=== PATIENT | female | born 1955 | race Two or more races ===

== ENCOUNTER 2020-11-23 12:59 | Emergency (ER) | payer MEDICARE, MEDICAID ==
[2020-11-23] MEDS ORDERED: Iopamidol 612 MG/ML 100 ML Bottle IVPUSH ONE (15:26)
[2020-11-23] MEDS ORDERED: Sodium Chloride 0.9% 10 ML Syringe FLUSH PRN (15:26)
[2020-11-23] MEDS ORDERED: Iopamidol 612 MG/ML 50 ML SDV IVPUSH ONE (15:26)
[2020-11-23] MEDS: Sodium Chloride 0.9% 1,000 ML IV STA ×2 (15:45→15:54)
[2020-11-23] MEDS: Sodium Chloride 0.9% 10 ML Syringe FLUSH PRN ×2 (15:54→16:17)
--- NOTE | 2020-11-23 16:51 | CT ---
CT abdomen and pelvis Technique: Multiple axial sections were obtained from above the dome of the diaphragm inferiorly through the pubic symphysis. Intravenous and oral contrast were utilized. Delayed images were also obtained through the abdomen and pelvis. Reconstructed coronal and sagittal images were obtained. Comparison: No prior CT abdomen or pelvis study is available. Findings: Visualized lung bases show no focal parenchymal abnormality. Liver shows no focal abnormality. Spleen size is normal. Surgical clips are seen from prior cholecystectomy. Common bile duct is enlarged at 1.3 cm which most likely is residual from prior cholecystectomy. Kidneys shows a cyst on the left side measuring 2.4 cm. Two small cortical cysts are noted within the right kidney with largest measuring 6.5 mm. On delayed images, the left kidney shows several other small cortical cysts measuring less than 1 cm. Delayed images show contrast within the collecting systems of both kidneys as well as contrast throughout the ureters into the bladder. Adrenal gland on the left side shows a nodule measuring 3.1 cm. This nodule shows some fat and most likely represents a large benign adenoma. Right adrenal gland is unremarkable. Prior stomach surgery is noted. Contrast is seen within small bowel which appears normal in caliber. Pancreas appears within normal limits. Abdominal aorta shows no aneurysm. No retroperitoneal adenopathy is seen. Small outpouching of the right anterior abdominal wall is seen with no herniation in this area. There is evidence of a fat-containing hernia within the mid and anterior abdominal wall. This hernia opening has a measurement of 2.7 cm. No pelvic mass or adenopathy is seen. Previous hysterectomy is noted. Appendix is seen which is normal in size. Bone window settings were reviewed. Severe disc space narrowing is seen within portions of the thoracic spine as well as within L2-3 through L5-S1 with vacuum phenomena. There is evidence of ruptured annulus with air being seen within the thecal sac at the L3-4 level. Scattered degenerative apophyseal change is seen. Impression: 1. Numerous findings as described above which are likely chronic. 2. Nothing acute is appreciated on CT study of the abdomen and pelvis. Diagnostic code #2
--- NOTE | 2020-11-23 17:25 | EDM.PDOC ---
ED HPI GENERAL MEDICAL PROBLEM - General Chief Complaint: Abdominal Pain Stated Complaint: VOMITING SENT BY [facility] Time Seen by Provider: 11/23/20 14:49 Source of Information: Reports: Patient, RN Notes Reviewed History Limitations: Reports: No Limitations - History of Present Illness INITIAL COMMENTS - FREE TEXT/NARRATIVE: Patient is a 65-year-old female presenting to the emergency department from [facility] for evaluation of 1/2-week history of inability keep food down. She reports that she is able to eat and the food goes down well, however with about 5 minutes she vomits it back up. Denies feeling nauseous prior to eating, however after eating she becomes nauseous. She is able to keep down fluids without difficulty. She has a history of gastric sleeve surgery. She had blood work, Covid test, abdominal x-ray, and chest x-ray done at [facility] and was found to be normal. She was sent here with a recommendation having CT scan completed. She denies any significant abdominal pain. She has had some diarrhea. Denies fever or chills. - Related Data Allergies Allergy/AdvReac Type Severity Reaction Status Date / Time No Known Allergies Allergy Verified 11/23/20 14:41 Home Meds: Home Meds Acetaminophen [Pain Relief] 325 mg PO Q6H PRN 11/23/20 [History] Cyclobenzaprine [Flexeril] 5 mg PO TID PRN 11/23/20 [History] Gabapentin [Neurontin] 1,200 mg PO BID 11/23/20 [History] Metoclopramide [Reglan] 5 mg PO DAILY 14 Days #14 tablet 11/23/20 [Rx] Multivitamin 1 each PO DAILY 11/23/20 [History] Omeprazole 20 mg PO DAILY 11/23/20 [History] Oxybutynin 10 mg PO DAILY 11/23/20 [History] Rosuvastatin [Crestor] 20 mg PO DAILY 11/23/20 [History] Venlafaxine [Effexor XR] 225 mg PO DAILY 11/23/20 [History] oxyCODONE HCl/Acetaminophen [Endocet 5-325 Tablet] 1 each PO Q6H PRN 11/23/20 [History] Past Medical History Cardiovascular History: Reports: Hypertension Endocrine/Metabolic History: Reports: Diabetes, Type II - Past Surgical History GI Surgical History: Reports: Bariatric Procedure, Hernia, Abdominal Social & Family History - Tobacco Use Tobacco Use Status *Q: Never Tobacco User - Recreational Drug Use Recreational Drug Use: No ED ROS GENERAL - Review of Systems Review Of Systems: See Below Constitutional: Denies: Fever, Chills HEENT: Reports: No Symptoms Respiratory: Reports: No Symptoms Cardiovascular: Reports: No Symptoms, Palpitations GI/Abdominal: Reports: Diarrhea, Nausea, Vomiting. Denies: Abdominal Pain : Reports: No Symptoms Musculoskeletal: Reports: No Symptoms Skin: Reports: No Symptoms Neurological: Reports: No Symptoms Psychiatric: Reports: No Symptoms Hematologic/Lymphatic: Reports: No Symptoms Immunologic: Reports: No Symptoms ED EXAM, GI/ABD - Physical Exam Exam: See Below Exam Limited By: No Limitations General Appearance: Alert, WD/WN, No Apparent Distress Respiratory/Chest: No Respiratory Distress, Lungs Clear, Normal Breath Sounds, No Accessory Muscle Use, Chest Non-Tender Cardiovascular: Normal Peripheral Pulses, Regular Rate, Rhythm, No Edema, No Gallop, No JVD, No Murmur, No Rub GI/Abdominal Exam: Normal Bowel Sounds, Soft, No Organomegaly, No Distention, No Abnormal Bruit, No Mass, Pelvis Stable, Tender (mild epigastric ) Neurological: Alert, Oriented, CN II-XII Intact, Normal Cognition, Normal Gait, Normal Reflexes, No Motor/Sensory Deficits Psychiatric: Normal Affect, Normal Mood Skin Exam: Warm, Dry, Intact, Normal Color, No Rash Course - Vital Signs Last Recorded V/S: Last Vital Signs Temp 98.5 F 11/23/20 14:37 Pulse 89 11/23/20 14:37 Resp 16 11/23/20 14:37 BP 128/92 H 11/23/20 14:37 Pulse Ox 97 11/23/20 14:37 - Orders/Labs/Meds Orders: Active Orders 24 hr Category Date Time Status Peripheral IV Insertion Adult [OM.PC] Stat Oth 11/23/20 15:17 Ordered Labs: Laboratory Tests 11/23/20 11/23/20 11/23/20 Range/Units 15:30 15:30 17:40 WBC 5.23 (3.98-10.04) K/mm3 RBC 4.49 (3.98-5.22) M/mm3 Hgb 13.7 (11.2-15.7) gm/dl Hct 42.2 (34.1-44.9) % MCV 94.0 (79.4-94.8) fl MCH 30.5 (25.6-32.2) pg MCHC 32.5 (32.2-35.5) g/dl RDW Std Deviation 44.7 (36.4-46.3) fL Plt Count 176 L (182-369) K/mm3 MPV 10.0 (9.4-12.3) fl Neut % (Auto) 64.5 (34.0-71.1) % Lymph % (Auto) 26.6 (19.3-51.7) % G[place]rie % (Auto) 7.6 (4.7-12.5) % Eos % (Auto) 1.1 (0.7-5.8) Baso % (Auto) 0.2 (0.1-1.2) % Neut # (Auto) 3.37 (1.56-6.13) K/mm3 Lymph # (Auto) 1.39 (1.18-3.74) K/mm3 Guthrie # (Auto) 0.40 H (0.24-0.36) K/mm3 Eos # (Auto) 0.06 (0.04-0.36) K/mm3 Baso # (Auto) 0.01 (0.01-0.08) K/mm3 Sodium 144 (136-145) mEq/L Potassium 4.4 (3.5-5.1) mEq/L Chloride 108 H (98-107) mEq/L Carbon Dioxide 33 H (21-32) mEq/L Anion Gap 7.4 (5-15) BUN 27 H (7-18) mg/dL Creatinine 1.2 H (0.55-1.02) mg/dL Est Cr Clr Drug Dosing 35.98 mL/min Estimated GFR (MDRD) 45 (>60) mL/min BUN/Creatinine Ratio 22.5 H (14-18) Glucose 97 (70-99) mg/dL Calcium 8.5 (8.5-10.1) mg/dL Magnesium 2.0 (1.8-2.4) mg/dL Total Bilirubin 0.8 (0.2-1.0) mg/dL AST 195 H (15-37) U/L ALT 150 H (14-59) U/L Alkaline Phosphatase 45 L (46-116) U/L Total Protein 6.9 (6.4-8.2) g/dl Albumin 3.3 L (3.4-5.0) g/dl Globulin 3.6 gm/dL Albumin/Globulin Ratio 0.9 L (1-2) Urine Color Yellow (Yellow) Urine Appearance Clear (Clear) Urine pH 6.0 (5.0-8.0) Ur Specific [place] 1.020 (1.005-1.030) Urine Protein Trace H (Negative) Urine Glucose (UA) Negative (Negative) Urine Ketones Negative (Negative) Urine Occult Blood Negative (Negative) Urine Nitrite Negative (Negative) Urine Bilirubin Negative (Negative) Urine Urobilinogen 2.0 H (0.2-1.0) Ur Leukocyte Esterase Negative (Negative) U Hyaline Cast (Auto) 5-10 H (0-5) /lpf Urine RBC 0-5 (0-5) /hpf Urine WBC 0-5 (0-5) /hpf Ur Squamous Epith Cells 0-5 (0-5) /hpf Calcium Oxalate Crystal Few H (NONE) Urine Bacteria Rare (FEW) /hpf Urine Mucus Moderate H (FEW) /hpf Meds: Medications Discontinued Medications Generic Name Dose Route Start Last Admin Trade Name Freq PRN Reason Stop Dose Admin Sodium Chloride 1,000 mls @ 150 mls/hr 11/23/20 15:18 11/23/20 15:54 Normal Saline IV 11/23/20 21:57 150 mls/hr NOW STA Administration Iopamidol 100 ml 11/23/20 15:26 11/23/20 16:16 Iopamidol 612 Mg/Ml 100 Ml Bottle IVPUSH 11/23/20 15:27 100 ml ONETIME ONE Administration Iopamidol 50 ml 11/23/20 15:26 11/23/20 16:16 Iopamidol 612 Mg/Ml 50 Ml Sdv IVPUSH 11/23/20 15:27 50 ml ONETIME ONE Administration Sodium Chloride 10 ml 11/23/20 15:17 11/23/20 16:17 Sodium Chloride 0.9% 10 Ml Syringe FLUSH 10 ml ASDIRECTED PRN Administration Keep Vein Open Sodium Chloride 10 ml 11/23/20 15:26 11/23/20 16:18 Sodium Chloride 0.9% 10 Ml Syringe FLUSH 10 ml ONETIME PRN Administration IV FLUSH - Re-Assessments/Exams Free Text/Narrative Re-Assessment/Exam: 11/23/20 17:25 Hematology significant for chloride elevated at 108, CO2 33, BUN 27, creatinine 1.2, AST 195, ALT 150. CT scan of the abdomen pelvis shows numerous findings as described above which are likely chronic. There is nothing acute visualized on the CT. urinalysis is negative for infection. Patient will be discharged home. I will start her on Reglan 5 mg each morning to see if this helps. She should follow-up with her primary care provider or return to ER for new or worsening symptoms. She verbalized understanding this. Discharge instructions as documented. Departure - Departure Time of Disposition: 17:41 Disposition: Home, Self-Care 01 Condition: Good Clinical Impression: Vomiting Qualifiers: Vomiting type: unspecified Vomiting Intractability: non-intractable Nausea presence: with nausea Qualified Code(s): R11.2 - Nausea with vomiting, unspecified - Discharge Information *PRESCRIPTION DRUG MONITORING PROGRAM REVIEWED*: No *COPY OF PRESCRIPTION DRUG MONITORING REPORT IN PATIENT DENISE: No Prescriptions: Metoclopramide [Reglan] 5 mg PO DAILY 14 Days #14 tablet Instructions: Vomiting, Adult Referrals: Sophie Rushing MD [Primary Care Provider] - Forms: ED Department Discharge Additional Instructions: You were seen in the emergency department today for inability keep food down for the last week and a half. Work of included blood work, urinalysis, and a CT scan your abdomen pelvis. Results of your work-up were found to be overall normal. The contrast moved through your bowels well indicating that you are not obstructed. You have been started on Reglan to help stimulate gastric motility. Return to ER for any new or worsening symptoms of concern. Take this as prescribed. Recommend follow-up with your primary care provider at next available visit for ongoing monitoring. Sepsis Event Note (ED) - Evaluation Sepsis Screening Result: No Definite Risk - My Orders Last 24 Hours: My Active Orders 11/23/20 15:17 Peripheral IV Insertion Adult [OM.PC] Stat - Assessment/Plan Last 24 Hours: My Active Orders 11/23/20 15:17 Peripheral IV Insertion Adult [OM.PC] Stat
== END 2020-11-23 18:15 | disposition home or self-care (01) ==
LOC: JD.ED 12:59
DX: R11.2 Nausea with vomiting, unspecified (principal); E11.9 Type 2 diabetes mellitus without complications; I10 Essential (primary) hypertension; Z79.899 Other long term (current) drug therapy
CPT/HCPCS: 36415; 74177; 80053; 81001; 83735; 85025; 99284; J7030; Q9967; 99283

== ENCOUNTER 2022-02-25 15:52 | Emergency (ER) | payer MEDICARE, MEDICAID | END 2022-02-25 23:40 | disposition home or self-care (01) | LOC: JD.ED 15:52 | DX: H54.62 Unqualified visual loss, left eye, normal vision right eye (principal); E78.00 Pure hypercholesterolemia, unspecified; I10 Essential (primary) hypertension; K21.9 Gastro-esophageal reflux disease without esophagitis; E11.9 Type 2 diabetes mellitus without complications; E66.9 Obesity, unspecified; Z68.41 Body mass index [BMI] 40.0-44.9, adult; Z87.891 Personal history of nicotine dependence; Z98.41 Cataract extraction status, right eye; Z98.42 Cataract extraction status, left eye; Z79.899 Other long term (current) drug therapy | CPT/HCPCS: 70450; 70450-26; 70486; 70486-26; 99283 ==

== ENCOUNTER 2022-06-27 16:46 | Emergency (ER) | payer MEDICARE, MEDICAID | END 2022-06-27 20:46 | disposition home or self-care (01) | LOC: JD.ED 16:46 | DX: S00.03XA Contusion of scalp, initial encounter (principal); E78.00 Pure hypercholesterolemia, unspecified; I10 Essential (primary) hypertension; K21.9 Gastro-esophageal reflux disease without esophagitis; E11.9 Type 2 diabetes mellitus without complications; E66.9 Obesity, unspecified; Z88.6 Allergy status to analgesic agent; Z68.37 Body mass index [BMI] 37.0-37.9, adult; Z79.899 Other long term (current) drug therapy; W19.XXXA Unspecified fall, initial encounter; W23.0XXA Caught, crushed, jammed, or pinched between moving objects, initial encounter | CPT/HCPCS: 99283 ==

== ENCOUNTER 2022-07-08 06:21 | Day surgery (SDC) | payer MEDICARE, MEDICAID ==
[~2022-07-08 06:21] MED LIST: Acetaminophen 325 MG Tab PO SCH; Lactated Ringers 1,000 ML IV SCH; Lidocaine 1%/Sod Bicarbonate in NS 8.4% 1 ML Syringe IDERM PRN; Pregabalin 25 MG Cap PO SCH; Sodium Chloride 0.9% 10 ML Syringe FLUSH PRN; Sodium Chloride 0.9% 10 ML Syringe FLUSH SCH; oxyCODONE ER 10 MG TAB.ER PO SCH
[2022-07-08] MEDS ORDERED: Tranexamic Acid 1,000 MG/10 ML Vial IV SCH (08:00)
[2022-07-08] MEDS ORDERED: Triamcinolone Acetonide 40 MG/ML 1 ML SDV ONE (08:00)
[2022-07-08] MEDS ORDERED: Bupivacaine 0.25% 10 ML SDV ONE (08:00)
[2022-07-08] MEDS ORDERED: Tranexamic Acid 1,000 MG/10 ML Vial ONE (08:00)
[2022-07-08] MEDS ORDERED: Dexmedetomidine 200 MCG/2 ML SDV ONE (08:14)
[2022-07-08] MEDS ORDERED: Ropivacaine 0.5% 5 MG/ML 30 ML SDV ONE (08:15)
[2022-07-08] MEDS ORDERED: ceFAZolin 2 GM Vial ONE (08:16)
[2022-07-08] MEDS ORDERED: fentaNYL 100 MCG/2 ML SDV ONE (08:16)
[2022-07-08] MEDS ORDERED: Propofol 200 MG/20 ML SDV ONE ×2 (08:17→10:08)
[2022-07-08] MEDS ORDERED: Dexamethasone 4 MG/ML 5 ML MDV ONE (08:23)
[2022-07-08] MEDS ORDERED: fentaNYL 100 MCG/2 ML SDV IVPUSH PRN (10:03)
[2022-07-08] MEDS ORDERED: HYDROmorphone 0.5 MG/0.5 ML Syringe IVPUSH PRN (10:03)
[2022-07-08] MEDS: Morphine 8 MG, EPINEPHrine 0.3 MG, Cefuroxime 750 MG, Ketorolac 30 MG, Sodium Chloride ... PRN ×10 (10:21→10:26)
[2022-07-08] MEDS: Vancomycin 1 GM SDV ONE ×3 (10:21→10:34)
[2022-07-08] MEDS: Tranexamic Acid 1,000 MG/10 ML Vial ONE ×3 (10:21→10:34)
[2022-07-08] MEDS ORDERED: EPINEPHrine 1 MG/ML SDV ONE (11:14)
[2022-07-08] MEDS ORDERED: oxyCODONE 5 MG Tab PO SCH (13:27)
== END 2022-07-08 15:05 | disposition home or self-care (01) ==
LOC: JD.SDS 06:21
PROVIDERS: ATTEND Orthopaedic Surgery
DX: M17.0 Bilateral primary osteoarthritis of knee (principal); I12.9 Hypertensive chronic kidney disease with stage 1 through stage 4 chronic kidney disease, or unspecified chronic kidney disease; E11.22 Type 2 diabetes mellitus with diabetic chronic kidney disease; N18.30 Chronic kidney disease, stage 3 unspecified; E11.69 Type 2 diabetes mellitus with other specified complication; M51.36 Other intervertebral disc degeneration, lumbar region; K21.9 Gastro-esophageal reflux disease without esophagitis; F41.9 Anxiety disorder, unspecified; F33.1 Major depressive disorder, recurrent, moderate; H54.61 Unqualified visual loss, right eye, normal vision left eye; D69.1 Qualitative platelet defects; E78.00 Pure hypercholesterolemia, unspecified; E66.9 Obesity, unspecified; Z68.35 Body mass index [BMI] 35.0-35.9, adult; Z88.6 Allergy status to analgesic agent; Z79.899 Other long term (current) drug therapy; Z87.891 Personal history of nicotine dependence; Z98.890 Other specified postprocedural states; Z90.3 Acquired absence of stomach [part of]; Z90.49 Acquired absence of other specified parts of digestive tract
CPT/HCPCS: 0055T; 20610; 27447; 36415; 64447; 80048; 85025; 85610; 97116; 97161; A9270; C1713; C1776; J0171; J0690; J0697; J1100; J1885; J2270; J2704; J2795; J3010; J3301; J3370; J3490; J7120; 01402

== ENCOUNTER 2023-01-15 11:05 | Day surgery (SDC) | payer MEDICARE, MEDICAID ==
[~2023-01-15 11:05] MED LIST changes: -Acetaminophen 325 MG Tab PO SCH; +Bupivacaine 0.5% 30 ML SDV ONE; +EPINEPHrine 1 MG/ML SDV ONE; +Lidocaine 1% 30 ML SDV ONE; -Lidocaine 1%/Sod Bicarbonate in NS 8.4% 1 ML Syringe IDERM PRN; -Pregabalin 25 MG Cap PO SCH; -oxyCODONE ER 10 MG TAB.ER PO SCH
[2023-01-15] MEDS ORDERED: Ondansetron 4 MG/2 ML SDV ONE (13:16)
[2023-01-15] MEDS ORDERED: Rocuronium 50 MG/5 ML Vial ONE (13:16)
[2023-01-15] MEDS ORDERED: fentaNYL 250 MCG/5 ML SDV ONE (13:16)
[2023-01-15] MEDS ORDERED: Lidocaine 1% 5 ML VIAL ONE (13:16)
[2023-01-15] MEDS ORDERED: Midazolam 1 MG/ML 2 ML SDV ONE (13:16)
[2023-01-15] MEDS ORDERED: Propofol 200 MG/20 ML SDV ONE (13:16)
[2023-01-15] MEDS ORDERED: Succinylcholine 200 MG/10 ML MDV ONE (13:19)
[2023-01-15] MEDS ORDERED: fentaNYL 100 MCG/2 ML SDV IVPUSH PRN ×2 (13:45→13:46)
[2023-01-15] MEDS ORDERED: HYDROmorphone 0.5 MG/0.5 ML Syringe IVPUSH PRN ×2 (13:45→13:46)
[2023-01-15] MEDS ORDERED: Dexamethasone 4 MG/ML 5 ML MDV ONE (13:45)
[2023-01-15] MEDS ORDERED: Ondansetron 4 MG/2 ML SDV IVPUSH PRN ×2 (13:45→13:46)
[2023-01-15] MEDS ORDERED: ePHEDrine 50 MG/ML SDV ONE (13:47)
[2023-01-15] MEDS ORDERED: ceFAZolin 2 GM Vial ONE (13:48)
[2023-01-15] MEDS ORDERED: Phenylephrine 1% 10 MG/ML SDV ONE (14:10)
[2023-01-15] MEDS ORDERED: Lactated Ringers 1,000 ML ONE (14:11)
[2023-01-15] MEDS ORDERED: Neostigmine Methylsulfate 10 MG/10 ML MDV ONE (14:41)
== END 2023-01-15 18:05 | disposition home or self-care (01) ==
LOC: JD.SDS 11:05
PROVIDERS: ATTEND Surgery
DX: K43.2 Incisional hernia without obstruction or gangrene (principal); K66.0 Peritoneal adhesions (postprocedural) (postinfection); E11.22 Type 2 diabetes mellitus with diabetic chronic kidney disease; I12.9 Hypertensive chronic kidney disease with stage 1 through stage 4 chronic kidney disease, or unspecified chronic kidney disease; N18.30 Chronic kidney disease, stage 3 unspecified; K21.9 Gastro-esophageal reflux disease without esophagitis; F33.1 Major depressive disorder, recurrent, moderate; E66.9 Obesity, unspecified; Z68.33 Body mass index [BMI] 33.0-33.9, adult; E78.00 Pure hypercholesterolemia, unspecified; Z87.891 Personal history of nicotine dependence; Z90.49 Acquired absence of other specified parts of digestive tract; Z90.710 Acquired absence of both cervix and uterus; Z79.899 Other long term (current) drug therapy; Z88.6 Allergy status to analgesic agent
CPT/HCPCS: 49593; J0171; J0330; J0690; J1170; J2250; J2371; J2405; J2704; J2710; J3010; J3490; J7120; J1100

== ENCOUNTER 2023-10-02 09:42 | Emergency (ER) | payer MEDICARE, MEDICAID ==
[2023-10-02] MEDS ORDERED: Sodium Chloride 0.9% 10 ML Syringe FLUSH PRN (09:59)
[2023-10-02 10:35] LABS: BASOPHILS PERCENT AUTO 0.5 % (0.0-1.0); EOSINOPHILS ABSOLUTE AUTO 0.1 K/mm3 (0.0-0.4); EOSINOPHILS PERCENT AUTO 1.7 % (0.0-6.0); HEMATOCRIT 30.7 % (37.0-47.0); HEMOGLOBIN 9.7 gm/dl (12.0-16.0); IMMATURE GRAN ABSOLUTE AUTO 0.01 K/mm3 (0.00-0.05); IMMATURE GRAN PERCENT AUTO 0.2 % (0.0-0.4); LYMPHOCYTES ABSOLUTE AUTO 0.9 K/mm3 (1.0-4.8); LYMPHOCYTES PERCENT AUTO 22.8 % (24.0-44.0); MEAN CORPUSCULAR HEMOGLOBIN 29.8 pg (28.0-32.0); MEAN CORPUSCULAR HGB CONC 31.6 g/dl (32.0-36.0); MEAN CORPUSCULAR VOLUME 94.5 fl (83.0-99.0); MEAN PLATELET VOLUME 10.2 fl (9.4-12.3); MONOCYTES ABSOLUTE AUTO 0.4 K/mm3 (0.0-0.8); MONOCYTES PERCENT AUTO 10.4 % (0.0-8.0); NEUTROPHILS ABSOLUTE AUTO 2.6 K/mm3 (1.8-7.7); NEUTROPHILS PERCENT AUTO 64.4 % (41.0-71.0); PLATELET COUNT,PLT 95 K/mm3 (150-400); RED BLOOD CELL COUNT 3.25 M/mm3 (4.10-5.30); WHITE BLOOD CELL COUNT,WBC 4.03 K/mm3 (3.9-11.3)
[2023-10-02 10:47] LABS: INR 1.23; PROTHROMBIN TIME 12.9 SECONDS (9.7-12.0)
[2023-10-02 10:48] LABS: PTT,PARTIAL THROMBOPLSTIN TIME 27.9 SECONDS (21.7-31.4)
[2023-10-02 10:50] LABS: SLIDE REVIEW ABNORMAL SMEAR
[2023-10-02 10:53] LABS: A/G RATIO 0.9 (1-2); ALBUMIN 2.5 g/dl (3.4-5.0); ANION GAP 11.7 (5-15); BILIRUBIN TOTAL 0.9 mg/dL (0.2-1.0); CALCIUM 8.1 mg/dL (8.5-10.1); CREATININE 1.1 mg/dL (0.55-1.02); EST CRCL DRUG DOSING (CG) 37.64 mL/min; POTASSIUM,K 3.7 mEq/L (3.5-5.1); PROTEIN TOTAL,TP 5.4 g/dl (6.4-8.2)
[2023-10-02 11:48] LABS: APPEARANCE,URINE SLT CLOUDY (Clear); BILIRUBIN,URINE 1+ (Negative); COLOR,URINE DARK YELLOW (Yellow); GLUCOSE,URINE NEGATIVE (Negative); KETONES,URINE NEGATIVE (Negative); LEUKOCYTE ESTERASE,URINE NEGATIVE (Negative); NITRITE,URINE NEGATIVE (Negative); OCCULT BLOOD,URINE NEGATIVE (Negative); PH,URINE 5.5 (5.0-8.0); PROTEIN,URINE 1+ (Negative)
[2023-10-02 11:57] LABS: BARBITURATE SCREEN,URINE NEGATIVE (CUTOFF=200); BENZODIAZEPINES SCREEN,URINE NEGATIVE (CUTOFF=150); BUPRENORPHINE SCREEN,URINE NEGATIVE (CUTOFF=10); METHADONE SCREEN, URINE NEGATIVE (CUTOFF=200); METHAMPHETAMINES SCREEN, URINE NEGATIVE (CUTOFF=500); OXYCODONE SCREEN,URINE PRESUMPTIVE POSITIVE (CUT0FF=100); THC SCREEN,URINE 20 NG/ML PRESUMPTIVE POSITIVE (CUTOFF=50)
[2023-10-02 12:01] LABS: AMPHETAMINES SCREEN, URINE NEGATIVE (CUTOFF=500); BACTERIA,URINE FEW /hpf (FEW); MUCUS,URINE MANY /hpf (FEW); RBC,URINE 0-5 /hpf (0-5); WBC,URINE 0-5 /hpf (0-5)
== END 2023-10-02 13:05 | disposition home or self-care (01) ==
LOC: JD.ED 09:42
DX: S00.83XA Contusion of other part of head, initial encounter (principal); D64.89 Other specified anemias; D69.6 Thrombocytopenia, unspecified; E78.00 Pure hypercholesterolemia, unspecified; I12.9 Hypertensive chronic kidney disease with stage 1 through stage 4 chronic kidney disease, or unspecified chronic kidney disease; N18.30 Chronic kidney disease, stage 3 unspecified; E11.22 Type 2 diabetes mellitus with diabetic chronic kidney disease; E66.9 Obesity, unspecified; Z79.899 Other long term (current) drug therapy; Z88.5 Allergy status to narcotic agent; Z90.710 Acquired absence of both cervix and uterus; W19.XXXA Unspecified fall, initial encounter; Z68.41 Body mass index [BMI] 40.0-44.9, adult
CPT/HCPCS: 36415; 70450; 70450-26; 70486; 70486-26; 71045; 71045-26; 72125; 72125-26; 80053; 80306; 80307; 81001; 84484; 85025; 85610; 85730; 93005; 99285

== ENCOUNTER 2024-02-25 17:24 | Emergency (ER) | payer MEDICARE, MEDICAID ==
[2024-02-25 18:36] LABS: BASOPHILS PERCENT AUTO 0.5 % (0.0-1.0); EOSINOPHILS ABSOLUTE AUTO 0.1 K/mm3 (0.0-0.4); EOSINOPHILS PERCENT AUTO 2.4 % (0.0-6.0); HEMATOCRIT 38.6 % (37.0-47.0); HEMOGLOBIN 12.5 gm/dl (12.0-16.0); IMMATURE GRAN ABSOLUTE AUTO 0.01 K/mm3 (0.00-0.05); IMMATURE GRAN PERCENT AUTO 0.3 % (0.0-0.4); LYMPHOCYTES PERCENT AUTO 27.2 % (24.0-44.0); MEAN CORPUSCULAR HEMOGLOBIN 30.3 pg (28.0-32.0); MEAN CORPUSCULAR HGB CONC 32.4 g/dl (32.0-36.0); MEAN CORPUSCULAR VOLUME 93.7 fl (83.0-99.0); MEAN PLATELET VOLUME 10.6 fl (9.4-12.3); MONOCYTES ABSOLUTE AUTO 0.4 K/mm3 (0.0-0.8); MONOCYTES PERCENT AUTO 10.8 % (0.0-8.0); NEUTROPHILS ABSOLUTE AUTO 2.2 K/mm3 (1.8-7.7); NEUTROPHILS PERCENT AUTO 58.8 % (41.0-71.0); PLATELET COUNT,PLT 87 K/mm3 (150-400); RED BLOOD CELL COUNT 4.12 M/mm3 (4.10-5.30); WHITE BLOOD CELL COUNT,WBC 3.71 K/mm3 (3.9-11.3)
[2024-02-25 19:10] LABS: A/G RATIO 0.8 (1-2); ALBUMIN 2.7 g/dl (3.4-5.0); ANION GAP 11.2 (5-15); BILIRUBIN TOTAL 0.8 mg/dL (0.2-1.0); BUN/CREATININE RATIO 23.6 (14-18); CALCIUM 9.1 mg/dL (8.5-10.1); CREATININE 1.1 mg/dL (0.55-1.02); EST CRCL DRUG DOSING (CG) 35.4 mL/min; MAGNESIUM 1.8 mg/dL (1.8-2.4); POTASSIUM,K 4.2 mEq/L (3.5-5.1); PROTEIN TOTAL,TP 5.9 g/dl (6.4-8.2)
[2024-02-25 19:12] LABS: LACTIC ACID 1.4 mmol/L (0.4-2.0)
[2024-02-25 20:01] LABS: APPEARANCE,URINE CLEAR (Clear); BILIRUBIN,URINE NEGATIVE (Negative); COLOR,URINE YELLOW (Yellow); GLUCOSE,URINE NEGATIVE (Negative); KETONES,URINE NEGATIVE (Negative); LEUKOCYTE ESTERASE,URINE NEGATIVE (Negative); NITRITE,URINE NEGATIVE (Negative); OCCULT BLOOD,URINE TRACE-INTACT (Negative); PH,URINE 6.5 (5.0-8.0); PROTEIN,URINE 2+ (Negative); UROBILINOGEN,URINE >=8.0 (0.2-1.0)
[2024-02-25 20:06] LABS: BACTERIA,URINE FEW /hpf (FEW); MUCUS,URINE FEW /hpf (FEW); RBC,URINE 0-5 /hpf (0-5); SQUAMOUS EPITHELIAL CELLS,UR 0-5 /hpf (0-5); WBC,URINE 0-5 /hpf (0-5)
[2024-02-25] MEDS: Sodium Chloride 0.9% 1,000 ML IV ONE (21:05)
[2024-02-25] MEDS: LORazepam 2 MG/ML SDV IVPUSH ONE (22:36)
[2024-02-25 23:03] LABS: BARBITURATE SCREEN,URINE NEGATIVE (CUTOFF=200); BENZODIAZEPINES SCREEN,URINE NEGATIVE (CUTOFF=150); BUPRENORPHINE SCREEN,URINE NEGATIVE (CUTOFF=10); METHADONE SCREEN, URINE NEGATIVE (CUTOFF=200); METHAMPHETAMINES SCREEN, URINE NEGATIVE (CUTOFF=500); OXYCODONE SCREEN,URINE PRESUMPTIVE POSITIVE (CUT0FF=100); THC SCREEN,URINE 20 NG/ML PRESUMPTIVE POSITIVE (CUTOFF=50)
[2024-02-25 23:17] LABS: AMPHETAMINES SCREEN, URINE NEGATIVE (CUTOFF=500)
[2024-02-25] MEDS: Haloperidol 5 MG Tab PO ONE (23:24)
[2024-02-26 14:52] LABS: FOLIC ACID 17.1 ng/mL (8.6-58.9)
[2024-02-26 14:58] LABS: TSH 3.739 uIU/mL (0.358-3.74)
[2024-02-26 16:54] LABS: INR 1.23; PROTHROMBIN TIME 12.9 SECONDS (9.7-12.0)
[2024-02-26] MEDS: Acetaminophen 325 MG Tab PO ONE (19:21)
[2024-02-27] MEDS ORDERED: Non-Formulary Medication 1 Each (Triamcinolone Acetonide 15 GM Tube) TOP PRN (12:35)
[2024-02-27] MEDS ORDERED: Acetaminophen 325 MG Tab PO PRN (12:35)
[2024-02-27] MEDS ORDERED: Non-Formulary Medication 1 Each (Naloxone Hcl 4 MG Spray) NS PRN (12:35)
[2024-02-27] MEDS ORDERED: Docusate Sodium 100 MG Cap PO PRN (12:35)
[2024-02-27] MEDS ORDERED: Acetaminophen/oxyCODONE 325-5 MG Tab PO PRN (12:35)
[2024-02-27] MEDS ORDERED: CYCLOBENZAPRINE 5 MG PO PRN (12:35)
[2024-02-27] MEDS ORDERED: Cyclobenzaprine 10 MG Tab PO PRN (12:42)
[2024-02-27] MEDS ORDERED: Naloxone 0.4 MG/ML SDV IVPUSH PRN (12:43)
[2024-02-27] MEDS ORDERED: Triamcinolone Acetonide 0.1% Crm 15 GM Tube TOP PRN (12:45)
[2024-02-27] MEDS ORDERED: Gabapentin 600 MG Tab PO SCH (21:00)
[2024-02-27] MEDS ORDERED: Sodium Bicarbonate 650 MG Tab PO SCH (21:00)
[2024-02-28] MEDS ORDERED: Venlafaxine 75 MG Cap.ER PO SCH ×3 (09:00)
[2024-02-28] MEDS ORDERED: Multivitamin Tab PO SCH (09:00)
[2024-02-28] MEDS ORDERED: Non-Formulary Medication 1 Each (Cholecalciferol (Vitamin D3) [Vitamin D3] 1,250 MCG Table PO SCH ×2 (09:00)
[2024-02-28] MEDS ORDERED: Pantoprazole 40 MG Tab.CR PO SCH (09:00)
[2024-02-28] MEDS ORDERED: Oxybutynin 5 MG Tab.ER PO SCH (09:00)
[2024-02-28] MEDS ORDERED: Rosuvastatin 10 MG Tab PO SCH (09:00)
[2024-02-28] MEDS ORDERED: Ferrous Sulfate 324 MG Tab.EC PO SCH (09:00)
[2024-02-28] MEDS ORDERED: VENLAFAXINE 150 MG PO SCH (09:00)
== END 2024-02-27 19:37 | disposition home or self-care (01) ==
LOC: JD.ED 17:24
DX: R41.82 Altered mental status, unspecified (principal); I10 Essential (primary) hypertension; E78.00 Pure hypercholesterolemia, unspecified; K21.9 Gastro-esophageal reflux disease without esophagitis; E11.9 Type 2 diabetes mellitus without complications; E66.9 Obesity, unspecified; Z87.891 Personal history of nicotine dependence; Z79.899 Other long term (current) drug therapy; Z88.5 Allergy status to narcotic agent; Z68.39 Body mass index [BMI] 39.0-39.9, adult
CPT/HCPCS: 36415; 70450; 70551; 71045; 80053; 80143; 80179; 80306; 81001; 82140; 82607; 82746; 83605; 83735; 83880; 84443; 85025; 85610; 86592; 87040; 87428; 93005; 96361; 96374; 99285; A9270; C1758; J2060; J7030

== ENCOUNTER 2024-06-22 13:05 | Emergency (ER) | payer MEDICARE, MEDICAID ==
[2024-06-22 16:30] LABS: APPEARANCE,URINE CLEAR (Clear); BILIRUBIN,URINE 1+ (Negative); COLOR,URINE YELLOW (Yellow); GLUCOSE,URINE NEGATIVE (Negative); KETONES,URINE NEGATIVE (Negative); LEUKOCYTE ESTERASE,URINE NEGATIVE (Negative); NITRITE,URINE NEGATIVE (Negative); OCCULT BLOOD,URINE TRACE-INTACT (Negative); PROTEIN,URINE 2+ (Negative); UROBILINOGEN,URINE >=8.0 (0.2-1.0)
[2024-06-22 16:41] LABS: BACTERIA,URINE FEW /hpf (FEW); MUCUS,URINE FEW /hpf (FEW); RBC,URINE 0-5 /hpf (0-5); SQUAMOUS EPITHELIAL CELLS,UR 0-5 /hpf (0-5); WBC,URINE 0-5 /hpf (0-5)
== END 2024-06-22 17:15 | disposition home or self-care (01) ==
LOC: JD.ED 13:05
DX: M54.2 Cervicalgia (principal); M25.552 Pain in left hip; M25.562 Pain in left knee; I10 Essential (primary) hypertension; E78.00 Pure hypercholesterolemia, unspecified; K21.9 Gastro-esophageal reflux disease without esophagitis; E11.9 Type 2 diabetes mellitus without complications; E66.9 Obesity, unspecified; Z90.49 Acquired absence of other specified parts of digestive tract; Z90.710 Acquired absence of both cervix and uterus; Z88.8 Allergy status to other drugs, medicaments and biological substances; Z79.899 Other long term (current) drug therapy; W18.11XA Fall from or off toilet without subsequent striking against object, initial encounter
CPT/HCPCS: 72125; 72192; 73552; 73562; 81001; 82947; 99284; C1758

== ENCOUNTER 2024-07-23 13:09 | Emergency (ER) | payer MEDICARE, MEDICAID ==
[2024-07-23 14:15] LABS: BASOPHILS PERCENT AUTO 0.4 % (0.0-1.0); EOSINOPHILS ABSOLUTE AUTO 0.1 K/mm3 (0.0-0.4); EOSINOPHILS PERCENT AUTO 2.5 % (0.0-6.0); HEMATOCRIT 40.9 % (37.0-47.0); HEMOGLOBIN 13.3 gm/dl (12.0-16.0); IMMATURE GRAN ABSOLUTE AUTO 0.01 K/mm3 (0.00-0.05); IMMATURE GRAN PERCENT AUTO 0.2 % (0.0-0.4); LYMPHOCYTES ABSOLUTE AUTO 1.4 K/mm3 (1.0-4.8); LYMPHOCYTES PERCENT AUTO 28.2 % (24.0-44.0); MEAN CORPUSCULAR HEMOGLOBIN 30.2 pg (28.0-32.0); MEAN CORPUSCULAR HGB CONC 32.5 g/dl (32.0-36.0); MEAN PLATELET VOLUME 10.3 fl (9.4-12.3); MONOCYTES ABSOLUTE AUTO 0.4 K/mm3 (0.0-0.8); MONOCYTES PERCENT AUTO 8.7 % (0.0-8.0); NEUTROPHILS ABSOLUTE AUTO 2.9 K/mm3 (1.8-7.7); PLATELET COUNT,PLT 67 K/mm3 (150-400); WHITE BLOOD CELL COUNT,WBC 4.83 K/mm3 (3.9-11.3)
[2024-07-23 14:51] LABS: A/G RATIO 0.9 (1-2); ALANINE AMINOTRANSFERASE,ALT 33 U/L (14-59); ALBUMIN 2.9 g/dl (3.4-5.0); ALKALINE PHOSPHATASE 64 U/L (46-116); ANION GAP 11.9 (5-15); ASPARTATE AMNIOTRANSFERASE,AST 43 U/L (15-37); BILIRUBIN TOTAL 1.1 mg/dL (0.2-1.0); BLOOD UREA NITROGEN,BUN 24 mg/dL (7-18); BUN/CREATININE RATIO 26.7 (14-18); CALCIUM 9.1 mg/dL (8.5-10.1); CARBON DIOXIDE,CO2 28 mEq/L (21-32); CHLORIDE,CL 111 mEq/L (98-107); CREATININE 0.9 mg/dL (0.55-1.02); ESTIMATED GFR 68 mL/min (>60); GLUCOSE RANDOM 93 mg/dL (70-99); POTASSIUM,K 3.9 mEq/L (3.5-5.1); PROTEIN TOTAL,TP 6.1 g/dl (6.4-8.2); SODIUM,NA 147 mEq/L (136-145)
[2024-07-23 15:04] LABS: APPEARANCE,URINE CLEAR (Clear); BILIRUBIN,URINE NEGATIVE (Negative); COLOR,URINE YELLOW (Yellow); GLUCOSE,URINE NEGATIVE (Negative); KETONES,URINE NEGATIVE (Negative); LEUKOCYTE ESTERASE,URINE NEGATIVE (Negative); NITRITE,URINE NEGATIVE (Negative); OCCULT BLOOD,URINE NEGATIVE (Negative); PROTEIN,URINE 2+ (Negative); UROBILINOGEN,URINE >=8.0 (0.2-1.0)
[2024-07-23 15:24] LABS: BACTERIA,URINE FEW /hpf (FEW); MUCUS,URINE FEW /hpf (FEW); RBC,URINE 0-5 /hpf (0-5); SQUAMOUS EPITHELIAL CELLS,UR 0-5 /hpf (0-5); WBC,URINE 0-5 /hpf (0-5)
== END 2024-07-23 18:51 | disposition home or self-care (01) ==
LOC: JD.ED 13:09
DX: R41.0 Disorientation, unspecified (principal); I12.9 Hypertensive chronic kidney disease with stage 1 through stage 4 chronic kidney disease, or unspecified chronic kidney disease; E11.22 Type 2 diabetes mellitus with diabetic chronic kidney disease; E66.9 Obesity, unspecified; E78.00 Pure hypercholesterolemia, unspecified; N18.9 Chronic kidney disease, unspecified; M19.90 Unspecified osteoarthritis, unspecified site; K21.9 Gastro-esophageal reflux disease without esophagitis; Z88.6 Allergy status to analgesic agent; Z79.899 Other long term (current) drug therapy; Z90.710 Acquired absence of both cervix and uterus; Z90.49 Acquired absence of other specified parts of digestive tract; W19.XXXA Unspecified fall, initial encounter; Y92.009 Unspecified place in unspecified non-institutional (private) residence as the place of occurrence of the external cause
CPT/HCPCS: 36415; 70450; 70450-26; 71045; 71045-26; 72170; 72170-26; 80053; 81001; 85025; 93005; 99283; 99285

== ENCOUNTER 2024-08-20 15:35 | Emergency (ER) | payer MEDICARE, MEDICAID ==
[2024-08-20 17:19] LABS: BASOPHILS PERCENT AUTO 0.2 % (0.0-1.0); EOSINOPHILS ABSOLUTE AUTO 0.1 K/mm3 (0.0-0.4); EOSINOPHILS PERCENT AUTO 1.9 % (0.0-6.0); HEMATOCRIT 40.2 % (37.0-47.0); HEMOGLOBIN 12.9 gm/dl (12.0-16.0); IMMATURE GRAN ABSOLUTE AUTO 0.01 K/mm3 (0.00-0.05); IMMATURE GRAN PERCENT AUTO 0.2 % (0.0-0.4); LYMPHOCYTES ABSOLUTE AUTO 0.8 K/mm3 (1.0-4.8); LYMPHOCYTES PERCENT AUTO 20.3 % (24.0-44.0); MEAN CORPUSCULAR HEMOGLOBIN 30.5 pg (28.0-32.0); MEAN CORPUSCULAR HGB CONC 32.1 g/dl (32.0-36.0); MEAN PLATELET VOLUME 10.6 fl (9.4-12.3); MONOCYTES ABSOLUTE AUTO 0.3 K/mm3 (0.0-0.8); NEUTROPHILS ABSOLUTE AUTO 2.9 K/mm3 (1.8-7.7); NEUTROPHILS PERCENT AUTO 70.4 % (41.0-71.0); PLATELET COUNT,PLT 105 K/mm3 (150-400); RED BLOOD CELL COUNT 4.23 M/mm3 (4.10-5.30); WHITE BLOOD CELL COUNT,WBC 4.13 K/mm3 (3.9-11.3)
[2024-08-20 17:56] LABS: A/G RATIO 0.8 (1-2); ALANINE AMINOTRANSFERASE,ALT 39 U/L (14-59); ALBUMIN 2.5 g/dl (3.4-5.0); ALKALINE PHOSPHATASE 74 U/L (46-116); ANION GAP 10.3 (5-15); ASPARTATE AMNIOTRANSFERASE,AST 55 U/L (15-37); BILIRUBIN TOTAL 0.6 mg/dL (0.2-1.0); BLOOD UREA NITROGEN,BUN 26 mg/dL (7-18); BUN/CREATININE RATIO 23.6 (14-18); CALCIUM 8.6 mg/dL (8.5-10.1); CARBON DIOXIDE,CO2 29 mEq/L (21-32); CHLORIDE,CL 108 mEq/L (98-107); CREATININE 1.1 mg/dL (0.55-1.02); ESTIMATED GFR 54 mL/min (>60); GLUCOSE RANDOM 175 mg/dL (70-99); POTASSIUM,K 3.3 mEq/L (3.5-5.1); PROTEIN TOTAL,TP 5.8 g/dl (6.4-8.2); SODIUM,NA 144 mEq/L (136-145)
[2024-08-20 19:17] LABS: APPEARANCE,URINE CLEAR (Clear); BILIRUBIN,URINE 1+ (Negative); COLOR,URINE YELLOW (Yellow); GLUCOSE,URINE NEGATIVE (Negative); KETONES,URINE NEGATIVE (Negative); LEUKOCYTE ESTERASE,URINE TRACE (Negative); NITRITE,URINE NEGATIVE (Negative); OCCULT BLOOD,URINE TRACE-INTACT (Negative); PROTEIN,URINE 1+ (Negative)
[2024-08-20 19:24] LABS: BACTERIA,URINE FEW /hpf (FEW); MUCUS,URINE FEW /hpf (FEW)
== END 2024-08-20 19:57 | disposition home or self-care (01) ==
LOC: JD.ED 15:35
DX: R41.0 Disorientation, unspecified (principal); R53.1 Weakness; I10 Essential (primary) hypertension; E78.00 Pure hypercholesterolemia, unspecified; E11.9 Type 2 diabetes mellitus without complications; Z88.6 Allergy status to analgesic agent; Z79.899 Other long term (current) drug therapy; W18.39XA Other fall on same level, initial encounter; Y93.89 Activity, other specified
CPT/HCPCS: 36415; 71045; 80053; 81001; 85025; 87086; 87426; 99285; C1758; 99284

== ENCOUNTER 2024-10-05 22:25 | Emergency (ER) | payer MEDICARE, MEDICAID ==
[2024-10-05 23:33] LABS: BASOPHILS ABSOLUTE AUTO 0.0 K/mm3 (0.0-0.2); BASOPHILS PERCENT AUTO 0.5 % (0.0-1.0); EOSINOPHILS ABSOLUTE AUTO 0.1 K/mm3 (0.0-0.4); EOSINOPHILS PERCENT AUTO 2.2 % (0.0-6.0); IMMATURE GRAN ABSOLUTE AUTO 0.02 K/mm3 (0.00-0.05); IMMATURE GRAN PERCENT AUTO 0.5 % (0.0-0.4); LYMPHOCYTES ABSOLUTE AUTO 1.1 K/mm3 (1.0-4.8); LYMPHOCYTES PERCENT AUTO 28.2 % (24.0-44.0); MEAN PLATELET VOLUME 11.1 fl (9.4-12.3); MONOCYTES ABSOLUTE AUTO 0.5 K/mm3 (0.0-0.8); MONOCYTES PERCENT AUTO 11.2 % (0.0-8.0); NEUTROPHILS ABSOLUTE AUTO 2.3 K/mm3 (1.8-7.7); NEUTROPHILS PERCENT AUTO 57.4 % (41.0-71.0); NRBC ABSOLUTE 0.00 (0.00-0.02); NRBC PERCENT 0.0 % (0.0-0.2); PLATELET COUNT,PLT 69 K/mm3 (150-400); RED BLOOD CELL COUNT 4.06 M/mm3 (4.10-5.30); WHITE BLOOD CELL COUNT,WBC 4.01 K/mm3 (3.9-11.3)
[2024-10-05 23:51] LABS: A/G RATIO 0.8 (1-2); ALANINE AMINOTRANSFERASE,ALT 41 U/L (14-59); ASPARTATE AMNIOTRANSFERASE,AST 40 U/L (15-37); BILIRUBIN TOTAL 0.6 mg/dL (0.2-1.0); BLOOD UREA NITROGEN,BUN 32 mg/dL (7-18); CARBON DIOXIDE,CO2 32 mEq/L (21-32); CHLORIDE,CL 110 mEq/L (98-107); CREATININE 1.1 mg/dL (0.55-1.02); ESTIMATED GFR 54 mL/min (>60); GLUCOSE RANDOM 116 mg/dL (70-99); POTASSIUM,K 4.2 mEq/L (3.5-5.1); PROTEIN TOTAL,TP 5.6 g/dl (6.4-8.2); SODIUM,NA 145 mEq/L (136-145)
== END 2024-10-06 00:40 | disposition home or self-care (01) ==
LOC: JD.ED 22:25
DX: S09.90XA Unspecified injury of head, initial encounter (principal); E78.00 Pure hypercholesterolemia, unspecified; I10 Essential (primary) hypertension; K21.9 Gastro-esophageal reflux disease without esophagitis; E11.9 Type 2 diabetes mellitus without complications; Z88.6 Allergy status to analgesic agent; Z79.899 Other long term (current) drug therapy; Z90.49 Acquired absence of other specified parts of digestive tract; W18.39XA Other fall on same level, initial encounter; Y93.89 Activity, other specified
CPT/HCPCS: 36415; 70450; 70450-26; 73502-26-LT; 73502-LT; 80053; 85025; 99285